=== PATIENT | female | born 1995 | race Caucasian/White ===

== ENCOUNTER 2017-11-30 00:34 | Emergency (ER) | payer OTHER ==
[2017-11-30 00:56] VITALS: BP 141/83; PULSE 107; TEMP 98.4; BMI 34.9
--- NOTE | 2017-11-30 01:19 | PDOC ---
History of Present Illness - General Chief Complaint: Respiratory Stated Complaint: WHEEZING,DIFFICULTY BREATHING Time Seen by Provider: 11/30/17 01:00 History Source: Patient Exam Limitations: No Limitations - History of Present Illness Initial Comments: 11/30/17 01:14 Best Contact:[phone] Pmhx:Left hand underdeveloped/amniotic band syndrome Pshx:10/2017: right carpal tunnel sx Allergies: NKDA 22-year-old presents to the emergency department complaining of productive cough with phlegm 4 days without nausea/vomiting, fever/chills, headache, dizziness, lightheadedness, facial pains, nasal congestion, rhinorrhea, earaches , sore throat, chest pain, shortness of breath, neck pains, back pains, abdominal pains, flank pains, urinary symptoms. Timing/Duration: reports: other (x3d) Past History - Past Medical History Allergies/Adverse Reactions: Allergies Allergy/AdvReac Type Severity Reaction Status Date / Time No Known Allergies Allergy Verified 11/30/17 00:48 Home Medications: Ambulatory Orders Azithromycin [Zithromax -] 250 mg PO UTDICT #6 tab 11/30/17 - Suicide/Smoking/Psychosocial Hx Smoking History: Current every day smoker Have you smoked in the past 12 months: No Number of Cigarettes Smoked Daily: 7 Information on smoking cessation initiated: No Hx Alcohol Use: No Drug/Substance Use Hx: No Review of Systems - Review of Systems Able to Perform ROS?: Yes Comments:: 11/30/17 01:14 CONSTITUTIONAL: Absent: fever, chills, diaphoresis, generalized weakness, malaise, loss of appetite HEENT: Absent: rhinorrhea, nasal congestion, throat pain, throat swelling, difficulty swallowing, mouth swelling, ear pain, eye pain, visual Changes CARDIOVASCULAR: Absent: chest pain, loss of consciousness, palpitations, irregular heart rate, peripheral edema RESPIRATORY: +cough Absent: shortness of breath, dyspnea with exertion, orthopnea, wheezing, stridor , hemoptysis GASTROINTESTINAL: Absent: abdominal pain, abdominal distension, nausea, vomiting, diarrhea, constipation, melena, hematochezia GENITOURINARY: Absent: dysuria, frequency, urgency, hesitancy, hematuria, flank pain, genital pain MUSCULOSKELETAL: Absent: myalgia, arthralgia, joint swelling SKIN: Absent: rash, itching, pallor HEMATOLOGIC/IMMUNOLOGIC: Absent: easy bleeding, easy bruising, lymphadenopathy, frequent infections ENDOCRINE: Absent: unexplained weight gain, unexplained weight loss, heat intolerance, cold intolerance Is the patient limited [place]an proficient: No *Physical Exam - Vital Signs Last Vital Signs Temp Pulse Resp BP Pulse Ox 98.4 F 107 H 14 141/83 99 11/30/17 00:48 11/30/17 00:48 11/30/17 00:48 11/30/17 00:48 11/30/17 00:48 - Physical Exam Comments: 11/30/17 01:14 GENERAL: Well developed, well nourished. Awake and alert. No acute distress. HEENT: Normocephalic, atraumatic. PERRLA, EOMI. No conjunctival pallor. Sclera are non- icteric. Moist mucous membranes. Oropharynx is clear. NECK: Supple. Full ROM. No JVD. Carotid pulses 2+ and symmetric, without bruits. No thyromegaly. No lymphadenopathy. CARDIOVASCULAR: Regular rate and rhythm. No murmurs, rubs, or gallops. Distal pulses are 2+ and symmetric. PULMONARY: No evidence of respiratory distress. Lungs clear to auscultation bilaterally. No wheezing, rales or rhonchi. ABDOMINAL: Soft. Non-tender. Non-distended. No rebound or guarding. No organomegaly. Normoactive bowel sounds. MUSCULOSKELETAL Normal range of motion at all joints. No bony deformities or tenderness. No CVA tenderness. EXTREMITIES: No cyanosis. No clubbing. No edema. No calf tenderness. SKIN: Warm and dry. Normal capillary refill. No rashes. No jaundice. NEUROLOGICAL: Alert, awake, appropriate. Cranial nerves 2-12 intact. No deficits to light touch and temperature in face, upper extremities and lower extremities. No motor deficits in the in face, upper extremities and lower extremities. Normoreflexic in the upper and lower extremities. Normal speech. Toes are down- going bilaterally. Gait is normal without ataxia. PSYCHIATRIC: Cooperative. Good eye contact. Appropriate mood and affect. *DC/Admit/Observation/Transfer Diagnosis at time of Disposition: Acute bronchitis Qualifiers: Bronchitis organism: unspecified organism Qualified Code(s): J20.9 - Acute bronchitis, unspecified - Discharge Dispostion Disposition: HOME Condition at time of disposition: Stable Admit: No - Prescriptions Prescriptions: Azithromycin [Zithromax -] 250 mg PO UTDICT #6 tab - Referrals Referrals: ON STAFF,NOT [Primary Care Provider] - Gilles Morales MD [Staff Physician] - - Patient Instructions Printed Discharge Instructions: DI for Acute Bronchitis Additional Instructions: Increase fluids Prescription as prescribed until completion Follow-up with your physician within 48 hours Return back to the ER for severe/persistent or worsening symptoms - Post Discharge Activity
== END 2017-11-30 01:53 | disposition home or self-care (01) ==
LOC: JER 00:34
DX: J20.9 Acute bronchitis, unspecified (principal); F17.210 Nicotine dependence, cigarettes, uncomplicated
CPT/HCPCS: 99281-25

== ENCOUNTER 2018-07-25 20:43 | Emergency (ER) | payer OTHER ==
[2018-07-25 20:54] VITALS: BP 124/79; PULSE 78; TEMP 98.6; BMI 33.4
--- NOTE | 2018-07-25 20:57 | PDOC ---
Rapid Medical Evaluation Chief Complaint: Injury Time Seen by Provider: 07/25/18 20:53 Medical Evaluation: Allergies Allergy/AdvReac Type Severity Reaction Status Date / Time No Known Allergies Allergy Verified 07/25/18 20:54 Vital Signs Temp Pulse Resp BP Pulse Ox 98.6 F 78 18 124/79 100 07/25/18 20:52 07/25/18 20:52 07/25/18 20:52 07/25/18 20:52 07/25/18 20:52 07/25/18 20:56 I have performed a brief in-person evaluation of this patient. The patient presents with a chief complaint of: right 5th digit hyperextension 2 weeks ago. Pertinent physical exam findings: swelling and pain to PIP 5th right digit I have ordered the following: Xray 5th digit The patient will proceed to the ED for further evaluation. Discharge Disposition - Referrals Referrals: Sabrina Crawford [Primary Care Provider] - - Patient Instructions - Post Discharge Activity
--- NOTE | 2018-07-25 21:20 | PDOC ---
History of Present Illness - General Chief Complaint: Injury Stated Complaint: RIGTH FOOT PAIN Time Seen by Provider: 07/25/18 20:53 - History of Present Illness Initial Comments: 07/25/18 21:17 23-year-old female without comorbidities presents for evaluation of right fifth finger pain. She states she hyperextended her fifth finger 2 weeks ago and has pain since that time. She was born with amniotic band syndrome the third digit on her right hand is abscess Past History - Past Medical History Allergies/Adverse Reactions: Allergies Allergy/AdvReac Type Severity Reaction Status Date / Time No Known Allergies Allergy Verified 07/25/18 20:54 Home Medications: Ambulatory Orders NK [No Known Home Medication] 12/11/17 COPD: No - Suicide/Smoking/Psychosocial Hx Smoking History: Never smoked Have you smoked in the past 12 months: No Number of Cigarettes Smoked Daily: 7 Hx Alcohol Use: No Drug/Substance Use Hx: No Review of Systems - Review of Systems Musculoskeletal: Yes: See HPI, Joint Pain *Physical Exam - Vital Signs Last Vital Signs Temp Pulse Resp BP Pulse Ox 98.6 F 78 18 124/79 100 07/25/18 20:52 07/25/18 20:52 07/25/18 20:52 07/25/18 20:52 07/25/18 20:52 - Physical Exam Comments: 07/25/18 21:18 Right fifth finger and hand skin color and temperature are normal range of motion is limited in FDS and FDP however function is intact there are no gross sensorimotor deficits in the right fifth finger. There is diffuse tenderness about the PIPJ and DIPJ has as the MCP joint. She is otherwise neurovascularly intact. Medical Decision Making - Medical Decision Making 07/25/18 21:18 No acute fracture on x-ray today this is a sprain. I described Zbigniew taping. She asked about this a splint. However I told her that this would make her finger stiff especially 2 weeks after the injury where she needs to be more mobile PIPJ was left free for flexion and for the use of her hand. I will give her hand surgery follow-up. *DC/Admit/Observation/Transfer Diagnosis at time of Disposition: Finger sprain - Discharge Dispostion Disposition: HOME Condition at time of disposition: Stable Decision to Admit order: No - Referrals Referrals: Sabrina Crawford [Primary Care Provider] - Gilles Chahal MD [Staff Physician] - - Patient Instructions Printed Discharge Instructions: Finger Sprain, DI for Finger Sprain Additional Instructions: Dictate. He may remove the tape for hygienist and sleep. Return to the emergency room should symptoms worsen or go unresolved and follow-up with hand surgery in 2-3 days for further evaluation and treatment options. - Post Discharge Activity
== END 2018-07-25 21:23 | disposition home or self-care (01) ==
LOC: JERFT 20:43
DX: S63.630A Sprain of interphalangeal joint of right index finger, initial encounter (principal); X50.9XXA Other and unspecified overexertion or strenuous movements or postures, initial encounter; Y93.89 Activity, other specified; Y92.89 Other specified places as the place of occurrence of the external cause; Y99.8 Other external cause status
CPT/HCPCS: 73140-TC-RT-FY; 99281-25